=== PATIENT | male | born 1980 | race Caucasian/White ===

== ENCOUNTER 2019-02-26 12:31 | Inpatient (IN) ==
[2019-02-26] MEDS ORDERED: TUBERSOL ID ONE (17:18)
[2019-02-26] MEDS ORDERED: NICOTINE GUM BUCCAL PRN (17:18)
[2019-02-26] MEDS ORDERED: DESYREL PO PRN (17:18)
[2019-02-26] MEDS ORDERED: NICODERM PATCH TD PRN (17:18)
[2019-02-26] MEDS ORDERED: PHENOBARBITAL IV PRN (17:18)
[2019-02-26] MEDS ORDERED: DULCOLAX PR PRN (17:18)
[2019-02-26] MEDS ORDERED: SEROQUEL PO PRN (17:18)
[2019-02-26] MEDS ORDERED: TYLENOL PO PRN (17:18)
[2019-02-26] MEDS ORDERED: ZOFRAN IM PRN (17:18)
[2019-02-26] MEDS ORDERED: SENOKOT PO PRN (17:18)
[2019-02-26] MEDS ORDERED: ZOFRAN ODT PO PRN (17:18)
[2019-02-26] MEDS ORDERED: MAALOX PLUS LIQUID PO PRN (17:18)
[2019-02-26] MEDS ORDERED: MOTRIN PO PRN (17:18)
[2019-02-26] MEDS ORDERED: IMODIUM PO PRN ×2 (17:18)
[2019-02-26] MEDS ORDERED: ZOFRAN IV PRN (17:18)
[2019-02-26] MEDS ORDERED: D5W 1,000 ML IV PRN (17:18)
[2019-02-26] MEDS ORDERED: ROBAXIN PO PRN (17:55)
[2019-02-26] MEDS ORDERED: BENTYL PO PRN (17:55)
[2019-02-26] MEDS ORDERED: SALINE LOCK IV FLUID XX ONE (17:55)
[2019-02-26 18:04] LABS: AMYLASE 40 U/L (20-200); LIPASE 18 U/L (13-60)
[2019-02-26] MEDS: LIBRIUM PO SCH (23:17)
[2019-02-26 23:44] LABS: URINE SOURCE CLEAN CATCH
[2019-02-26 23:50] LABS: BILIRUBIN URINE NEGATIVE (NEGATIVE); BLOOD URINE NEGATIVE (NEGATIVE); COLOR YELLOW; GLUCOSE URINE NEGATIVE (NEGATIVE); KETONE URINE TRACE mg/dL (NEGATIVE); LEUKOCYTES URINE NEGATIVE (NEGATIVE); NITRITE URINE NEGATIVE (NEGATIVE); PH URINE 5.5; PROTEIN URINE NEGATIVE (NEGATIVE); SP GRAVITY URINE 1.019; TURBIDITY URINE CLEAR (CLEAR); UROBILINOGEN URINE NORMAL (NORMAL)
[2019-02-26 23:51] LABS: UR EPITHELIAL CELLS <10 /HPF (<10); URINE BACTERIA NEGATIVE /HPF; URINE RBC <10 /HPF (<10); URINE WBC <10 /HPF (<10)
[2019-02-27 00:26] LABS: UR AMPHETAMINES QUAL NONE DETECTED (NONE DETECT); UR BARBITUATES QUAL NONE DETECTED (NONE DETECT); UR BENZODIAZEPIN QUAL NONE DETECTED (NONE DETECT); UR CANNABINOIDS QUAL PRESUMPTIVE POSITIVE (NONE DETECT); UR COCAINE QUAL NONE DETECTED (NONE DETECT); UR METHADONE QUAL NONE DETECTED (NONE DETECT); UR METHAMPHETAMINE QUAL NONE DETECTED (NONE DETECT); UR OPIATES QUAL PRESUMPTIVE POSITIVE (NONE DETECT); UR OXYCODONE QUAL NONE DETECTED (NONE DETECT); UR PCP QUAL NONE DETECTED (NONE DETECT); UR PROPOXYPHENE QUAL NONE DETECTED (NONE DETECT); UR TCA QUAL NONE DETECTED (NONE DETECT)
[2019-02-27] MEDS: LIBRIUM PO SCH ×5 (05:06→20:32)
[2019-02-27] MEDS: PROTONIX PO SCH ×2 (06:50→07:52)
[2019-02-27] MEDS: VITAMIN B-1 PO SCH ×2 (07:52→08:00)
[2019-02-27] MEDS: THERA M PLUS PO SCH ×2 (07:52→08:00)
[2019-02-27] MEDS: FOLIC ACID PO SCH ×2 (07:52→08:00)
[2019-02-27] MEDS ORDERED: M.V.I.-12 10 ML, FOLIC ACID 1 MG, MAGNESIUM SULFATE 1 GM, THIAMINE 100 MG in NS 1,000 ML IV ONE (09:00)
[2019-02-27] MEDS: HYDROCHLOROTHIAZIDE PO SCH (10:20)
[2019-02-27] MEDS: PRINIVIL PO SCH (10:20)
[2019-02-27] MEDS: ATARAX PO PRN ×2 (12:12→17:28)
--- NOTE | 2019-02-27 19:30 | PROGRESS NOTE ---
DATE: 02/27/2019 SUBJECTIVE: Patient currently is in no respiratory distress, although he is in somewhat obvious withdrawal. He is fidgety. He is picking at his skin. OBJECTIVE: HEENT: Normocephalic. Neck: Supple. Cardiovascular: Regular rate. Chest: Clear, nonlabored. Abdomen: Soft, nondistended. Extremities: Moves all extremities. Skin: Warm and dry. No rashes. Vitals: Temp 97.6 degrees, pulse 94, respiratory rate 18, BP 148/101. ASSESSMENT: 1. Nausea and vomiting. 2. Abdominal pain. 3. Tremors. 4. Paresthesias. 5. Paroxysmal sweating. 6. Alcohol abuse, withdrawal and stabilization. 7. Hypertension. PLAN: We will continue patient in the hospital. Continue Librium. Continue counseling, and we will follow. We will restart his blood pressure medication. As noted in HPI, patient has adamantly refused any type of medication assisted therapy, Vivitrol, naltrexone, etc. We will continue to follow. cc: Renaldo Frederick MD
--- NOTE | 2019-02-27 23:29 | HISTORY AND PHYSICAL ---
CHIEF COMPLAINT: Nausea, vomiting. HISTORY OF PRESENT ILLNESS: The patient is a 38-year-old male who unfortunately has an extremely lengthy history of alcohol abuse, withdrawal, stabilization and reabuse. He presented to the hospital with acute alcohol withdrawal symptoms of nausea, vomiting, abdominal pain. He is having some myalgias and skin crawling. He is not having tremors yet, but notes this typically comes if he does not drink. States he actually did drink this morning to alleviate said symptoms. SOCIAL HISTORY: Patient is . He works at [employer]. Lives in [place]. PAST MEDICAL HISTORY: Rheumatoid arthritis, hypertension, chronic anxiety. He has history of blackouts due to alcohol. MEDICATIONS: Lisinopril 10/.5, Humira daily. ALLERGIES: No known drug allergies. REVIEW OF SYSTEMS: CIWA score is elevated at 28 secondary to nausea, vomiting, abdominal pain, mild tremors when he is not drinking. In fact, notes he had tremors this morning but he drank to alleviate some. He has skin crawling, pins and needles. He is anxious, fidgety, unable sit still. In fact, he is standing at the side of the bed. Denies any headaches, blurred vision, change in vision. Denies any focalized numbness, tingling, weakness in his extremities. Denies any dysuria, urinary frequency, urgency, hesitancy. Denies polyuria or polydipsia, skin rashes, weight loss or weight gain. SUBSTANCE ABUSE HISTORY: The patient has been in treatment in 2007, relapsed pretty quickly. He was in [facility] in 2000, 2008 for 28 days, again in 2018 for 28 days and relapsed almost immediately. States he has been sober as long as 54 days while he was going to . States that alcohol has caused relationship problems, health problems. Notes that he has lost a job previously due to his alcoholism. States he has a good job now but he is certainly afraid that he is going to lose this job due to alcoholism. Started drinking as early as age 5 or 6. Currently drinks a half a gallon a day. Has been doing this for the last 1-1/2 months. Started marijuana at age 9, currently smokes a joint a day, but denies any issues with marijuana. Started Xanax at 19, has not used for approximately a year. Started Adderall at 24, has not used for over 3 weeks. Tried cocaine in his late teens, has not used in many years. Tried hallucinogens in his 20s, has not used in many years. Started opiates in his teens. Has a history of opiate addiction, was on Suboxone for quite some time and has weaned off. Currently, he has been using 60 mg of morphine a day for the last 6 or 7 days. Denies smoking. FAMILY HISTORY: Positive for alcohol use. PHYSICAL EXAMINATION: VITAL SIGNS: Reviewed. Patient is awake, alert. He is in no current respiratory distress. He is somewhat anxious and nervous. He is standing at the side of the bed constantly moving about in the exam room. HEENT: Normocephalic, atraumatic. KARIS. NECK: Supple. No JVD. CARDIOVASCULAR: Regular rate. No murmurs. CHEST: Clear. ABDOMEN: Soft. EXTREMITIES: Moves all extremities. NEUROLOGIC: No changes. ASSESSMENT: 1. Nausea, vomiting. 2. Abdominal pain. 3. Myalgias. 4. Paresthesias. 5. Tremors. 6. Paroxysmal sweating. 7. Alcohol abuse, withdrawal and stabilization. 8. History of polysubstance use and abuse. 9. Chronic anxiety. 10. Hypertension. 11. Rheumatoid arthritis. PLAN: We are going to admit patient to the hospital. Place him on high-dose Librium taper. We will continue to follow. Continue counseling and education. The patient is quite adamant that he will not take any type of medication-assisted therapy because he can do this on his own. Discussed with patient very explicitly that I wish and hope that were true, but it has not been successful for him in his past. Explained the difference between naltrexone, Antabuse and Vivitrol and the unlikelihood of success without any type of assisted therapy. Discussed the importance of AA as well. cc: Renaldo Frederick MD
[2019-02-28] MEDS: LIBRIUM PO SCH ×4 (03:11→22:13)
[2019-02-28] MEDS: PROTONIX PO SCH ×2 (06:25→08:48)
[2019-02-28] MEDS: THERA M PLUS PO SCH (08:47)
[2019-02-28] MEDS: HYDROCHLOROTHIAZIDE PO SCH (08:47)
[2019-02-28] MEDS: VITAMIN B-1 PO SCH (08:47)
[2019-02-28] MEDS: FOLIC ACID PO SCH (08:47)
[2019-02-28] MEDS: PRINIVIL PO SCH (08:48)
[2019-02-28] MEDS: ATARAX PO PRN (10:57)
[2019-03-01] MEDS: LIBRIUM PO SCH ×4 (02:48→17:52)
[2019-03-01] MEDS: PROTONIX PO SCH ×2 (06:36→06:37)
[2019-03-01] MEDS: HYDROCHLOROTHIAZIDE PO SCH (08:22)
[2019-03-01] MEDS: ATARAX PO PRN ×3 (08:22→20:49)
[2019-03-01] MEDS: FOLIC ACID PO SCH (08:22)
[2019-03-01] MEDS: VITAMIN B-1 PO SCH (08:33)
[2019-03-01] MEDS: THERA M PLUS PO SCH (08:33)
[2019-03-01] MEDS: PRINIVIL PO SCH (08:33)
--- NOTE | 2019-03-01 09:53 | PROGRESS NOTE ---
DATE: 02/28/2019 SUBJECTIVE: Patient has no new complaints. He denies any fevers or chills. States that he has been sleepy. PHYSICAL EXAMINATION: Vital Signs: Reviewed. Temperature 98 degrees, pulse 94, respiratory rate 18, BP 122/81. General: Patient is awake. He is in no respiratory distress. HEENT: Normocephalic. Neck: Supple. Cardiovascular: Regular rate. Chest: Clear. Abdomen: Soft. Extremities: Moves all extremities. ASSESSMENT: 1. Nausea and vomiting. 2. Abdominal pain. 3. Tremors. 4. Myalgias. 5. Paresthesias. 6. Paroxysmal sweating. 7. Alcohol abuse, withdrawal, and stabilization. PLAN: We will continue patient in the hospital. We will continue current plan to wean his Librium. Again discussed with patient that if he desires to be successful, he is going to have to stop trying to control every aspect of every situation. He frequently asks for a different milligram of Librium, of hydroxyzine, of almost every medication. He desires to change the timing, the frequency, the dosing because "he knows his body better". Discussed with him that is typically not the road to success as he most likely became an alcoholic, believing that he could control everything including his alcohol intake, which obviously he was not successful in doing. We will continue the current plan. Continue to attempt to counselor aide. Further orders as needed. cc: Renaldo Frederick MD
--- NOTE | 2019-03-01 14:04 | PROGRESS NOTE ---
DATE: 03/01/2019 SUBJECTIVE: Patient notes he is feeling okay. He is still anxious, nervous. He is worried about going home. PHYSICAL EXAMINATION: Vital Signs: Reviewed. Temp 97.7 degrees, pulse 74, respiratory rate 18, BP 135/88. General: Patient is awake, alert. He is currently in no respiratory distress, sitting up on the side of the bed. HEENT: Normocephalic. Neck: Supple. Cardiovascular: Regular rate. No murmurs. Chest: Clear. Abdomen: Soft, obese, nondistended. Extremities: Moves all extremities. Neurologic: No changes. ASSESSMENT: 1. Nausea and vomiting. 2. Abdominal pain. 3. Myalgias. 4. Paresthesias. 5. Alcohol abuse, withdrawal and stabilization. PLAN: We will continue patient in the hospital. Continue Librium taper. Continue counseling. I personally spent over 35 minutes in his room in direct counseling today teaching him medication assisted therapy and the reasons. Discussed with him that he needs to develop the onset of not trusting himself, i.e., he checks his speed limit while he is driving, he wears seat belts, he balances his checkbook, etc. He should do the same activities when it comes to alcohol and alcohol ingestion. He should not trust that he can only drink one and should not trust that he can drink at all. cc: Renaldo Frederick MD
[2019-03-02] MEDS: PROTONIX PO SCH (06:38)
[2019-03-02 07:24] VITALS: BP 120/87
[2019-03-02] MEDS ORDERED: LIBRIUM PO SCH (09:00)
[2019-03-02] MEDS: THERA M PLUS PO SCH (10:32)
[2019-03-02] MEDS: PRINIVIL PO SCH (10:32)
[2019-03-02] MEDS: VITAMIN B-1 PO SCH (10:33)
[2019-03-02] MEDS: HYDROCHLOROTHIAZIDE PO SCH (10:33)
[2019-03-02] MEDS: FOLIC ACID PO SCH (10:33)
--- NOTE | 2019-03-05 05:04 | DISCHARGE SUMMARY ---
ADMISSION DATE: 02/26/2019 DISCHARGE DATE: 03/02/2019 DISCHARGE DIAGNOSIS: 1. Nausea, vomiting. 2. Abdominal pain. 3. Myalgias. 4. Paresthesias. 5. Tremors. 6. Alcohol abuse, withdrawal and stabilization. 7. Hypertension. CONSULTATIONS: None. PROCEDURES: None. BRIEF HOSPITAL COURSE: Patient was admitted to the hospital secondary to nausea, vomiting. Was having tremors, myalgias, paresthesias. He has been overtaking opiates as well as alcohol. We admitted him to the hospital, placed him on high-dose Librium taper. He thankfully had an uneventful hospital course. On discharge he is awake, alert, oriented. He is in no current respiratory distress. We are going to discharge him home. Discussed with him at great length the use of medication-assisted therapy, i.e. Vivitrol versus naltrexone. Discussed outpatient life counseling as well as alcohol counseling. Discussed having a sponsor as well as avoiding situations in which he would be tempted to drink. TIME SPENT: Greater than 30 minutes was spent in total care. cc: Renaldo Frederick MD
== END 2019-03-02 10:42 | disposition home or self-care (01) | DRG 897 ==
LOC: P.DIRADM 15:22 → P.MEDSURG 16:48
PROVIDERS: ADMIT Family Medicine; ATTEND Family Medicine